=== PATIENT | male | born 1985 | race Caucasian/White ===

== ENCOUNTER 2020-11-29 19:19 | Emergency (ER) | payer BC, SELFPAY | END 2020-11-29 19:25 | disposition left against medical advice (07) | PROVIDERS: Emergency Provider Nurse Practitioner Family; PCP Hospitalist | DX: Z53.21 Procedure and treatment not carried out due to patient leaving prior to being seen by health care provider (principal) | CPT/HCPCS: 99199 ==

== ENCOUNTER 2025-03-16 10:04 | Emergency (ER) | payer BC, SELFPAY ==
[2025-03-16 10:15] VITALS: BP 122/95; PULSE 102; RESP 20; TEMP 36.7; O2SAT 97
--- OUTSIDE RECORDS SUMMARY | 2025-03-16 10:54 | XMS_ITS | Clinical Summary ---
Author Organization [facility] Address [address], [facility] [address] [place] [address] Phone Care Team Providers Care Nursery Attendant Name Role Phone Cole Robles MD Unavailable [phone] Moiz Galicia MD Primary Care Provider [phone] Allergies Active Allergy Reactions Criticality Noted Date Comments Other Unknown Cats Medications citalopram (CELEXA) 20 MG Tablet Take 1 Tab by mouth daily. 90 Tab 04/16/2018 Active lisinopril (PRINIVIL, ZESTRIL) 10 MG TabletIndications :Essential hypertension Take 1 Tab by mouth daily. 90 Tab 3 11/19/2018 Active BuPROPion HCl (WELLBUTRIN PO) Take by mouth. Active ARIPiprazole (ABILIFY PO) Take by mouth. 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 Resolved Problems Problem Noted Date Diagnosed Date Resolved Date Paronychia, toe 12/03/2018 Overview (09/30/2015): Both borders R hallsimeon s/p I&D x 1 week healing Immunizations Immunization Administration Dates Next Due PUR Td W/ PRES AGE 7+ IM 11/21/2016 Pneumococcal Vaccine Adult - 23 Valent 9 Family History Medical History Relation Name Comments No Known Problems Brother Hypertension Father Cancer Maternal Grandfather Lung Hypertension Mother Relation Name Status Comments Brother Alive Father Alive Maternal Grandfather Mother Alive Social History Tobacco Use Types Packs/Day Years Used Date Smoking Tobacco: Every Day Cigarettes 0.2 22.3 Started: 11/21/2002 Smokeless Tobacco: Current Tobacco Cessation:Ready to Q uit: No; Counseling Given: Yes Comments:e cig Alcohol Use Standard Drinks/Week Comments Yes 0 (1 standard drink = 0.6 oz pur e alcohol) PHQ-2 Answer Date Recorded PHQ-2 Score 1 2019 Sex and Gender Information Value Date Recorded Sex Assigned at Not on file Legal Sex Male 12:01 AM CDT Gender Identity Not on file Sexual Orientation Not on file Last Filed Vital Signs Vital Sign Reading Time Taken Comments Blood Pressure 142/74 12/03/2018 3:58 PM [employer] Pulse 82 12/03/2018 3:58 PM [employer] Temperature 37 C (98.6 F) 12/03/2018 3:58 PM [employer] Respiratory Rate 18 07/29/2017 3:40 PM CDT Oxygen Saturation 95% 12/03/2018 3:58 PM [employer] Inhaled Oxygen Concentration - - Weight 111.9 kg (246 lb 12.8 oz) 12/03/2018 3:58 PM [employer] Height 184.2 cm (6' 0.5 ) 12/03/2018 3:58 PM [employer] Body Mass Index 33.01 12/03/2018 3:58 PM [employer] Plan of Treatment Health Maintenance Due Date Last Done Comments Hepatitis C Virus (HCV) Screening 1985 TdaP Immunization 1985 Hepatitis B Immunization (1 of 3 - 19+ 3-dose series) 2004 Influenza Immunization (#1) 2024 SARS-COV-2 Immunization (2023- season) 2024 01/29/2021, 01/07/2021 Respiratory Syncytial Virus (RSV) Immunization (Adult) (1 - 1-dose 75+ series) 2060 Pneumococcal Immunization Combined Aged Out 12/03/2018 No longer eligible b ased on patient's age to complete this topic Meningococcal Immunization (ACWY) Aged Out No longer eligible b ased on patient's age to complete this topic Rotavirus Immunization Aged Out No lo nger eligible based on patient's age to complete this topic Insurance [facility] Care Teams Nursery Attendant Relationship Specialty Start Date End Date Moiz Galicia MD [address] [place] [address] PCP - General Family Medicine 04/28/21 Cole Robles MD [address] [place] [address] Consulting Physician Psychiatry 12/03/18
--- OUTSIDE RECORDS SUMMARY | 2025-03-16 10:54 | XMS_ITS | Encounter Summary ---
Author Organization [facility] Healthcare Address [address] [place] [address] Care Team Providers Care Cracking Machine Operator Name Role Phone Moiz Galicia MD Primary Care Provider [phone] Reason for Visit * Reason Onset Date Comments Medical Question/Miscellaneous 05/01/2024 Encounter Details Date Type Department Care Team (Late st Contact Info) Description 05/01/2024 Telephone [facility] [address] [address] Moiz Galicia MD [address] [place] [id number] Medical Question/Miscellaneous Social History Tobacco Use Types Packs/Day Years Used Date Smoking Tobacco: Every Day Vaping Smokeless Tobacco: Never Alcohol Use Standard Drinks/Week Comments Not Currently 0 (1 standard drink = 0.6 oz pur e alcohol) AUDIT-C Answer Date Recorded Q1: How often do you have a drink containing alc ohol? 2-4 times a month 12/07/2022 Average Number of Drinks Not on file 023 Frequency of Binge Drinking Not on file 11/12 PHQ-2 Answer Date Recorded PHQ-2 Total Score (If total score is 3 or more points, staff should administer the PHQ-9) 0 08/09/2023 Personal Safety Answer Date Recorded Have you ever been in or are you currently in a harmful physical or emotional relationship or is someone making you feel afraid or unsafe? Denies 09/09/2023 Sex and Gender Information Value Date Recorded Sex Assigned at Not on file Legal Sex Male 6:50 PM RN [employer] Gender Identity Not on file Sexual Orientation Not on file documented as of this encounter Plan of Treatment Not on file documented as of this encounter Visit Diagnoses Not on filedocumented in this encounter Care Teams Cracking Machine Operator Relationship Specialty Start Date End [place] [address] PCP - General Family Medicine 08/12/20 documented as of this encounter
--- OUTSIDE RECORDS SUMMARY | 2025-03-16 10:54 | XMS_ITS | Clinical Summary ---
Author Organization [facility] [address] Address [address] [place] [id number] Care Team Providers Care Education Rep Name Role Phone Moiz Galicia MD Primary Care Provider [phone] Allergies Active Allergy Reactions Criticality Noted Date Comments Cat Lg Unknown 02/15/2021 Medications ALPRAZolam (XANAX) 1 mg tabletIndicatio ns:Generalized Anxiety Disorder,Panic Disorder Take 1 tablet (1 mg total) by mouth 4 (four) times a day 120 tablet 5 03/28/20 25 Active ARIPiprazole (ABILIFY) 5 mg tabletIndicatio ns:Bipolar affective disorder, currently depressed, moderate (HCC) Take 1 tablet (5 mg total) by mouth daily 30 tablet 5 03/28/[address] (CYMBALTA) 30 mg capsuleIndicati ons:Anxiety with Depression Take 1 capsule (30 mg total) by mouth daily 30 capsule 5 03/28/20 25 Active lisinopriL (PRINIVIL,ZESTR IL) 10 mg tabletIndicatio ns:Hypertension , essential Take 1 tablet (10 mg total) by mouth daily 30 tablet 5 03/28/20 25 Active carvediloL (COREG) 12.5 mg tablet Take 1 tablet (12.5 mg total) by mouth 2 (two) times a day with meals 60 tablet 5 03/28/20 25 Active FLUoxetine (PROzac) 10 mg tablet/capsuleI ndications:Bipo lar affective disorder, currently depressed, moderate (HCC) Take 1 tablet/capsu le (10 mg total) by mouth daily 30 tablet/capsul e 5 03/28/20 25 Active FLUoxetine (PROzac) 10 mg tablet/capsuleI ndications:Bipo lar affective disorder, currently depressed, moderate (HCC) Take 1 tablet/capsu le (10 mg total) by mouth daily 90 capsule 4 5 02/27/20 25 Discontinu ed(Reorder ) carvediloL (COREG) 12.5 mg tablet Take 1 tablet (12.5 mg total) by mouth 2 (two) times a day with meals 180 tablet 3 5 02/27/20 25 Discontinu ed(Reorder ) ARIPiprazole (ABILIFY) 5 mg tabletIndicatio ns:Bipolar affective disorder, currently depressed, moderate (HCC) Take 1 tablet (5 mg total) by mouth daily 90 tablet 5 02/27/20 25 Discontinu ed(Reorder ) lisinopriL (PRINIVIL,ZESTR IL) 10 mg tabletIndicatio ns:Hypertension , essential Take 1 tablet (10 mg total) by mouth daily 90 tablet 1 5 02/27/20 25 Discontinu ed(Reorder ) DULoxetine DR (CYMBALTA) 30 mg capsuleIndicati ons:Anxiety with Depression Take 1 capsule (30 mg total) by mouth daily 90 capsule 1 5 02/27/20 25 Discontinu ed(Reorder ) ALPRAZolam (XANAX) 1 mg tabletIndicatio ns:Generalized Anxiety Disorder,Panic Disorder Take 1 tablet (1 mg total) by mouth 4 (four) times a day 120 tablet 5 02/27/20 25 Discontinu ed(Reorder ) Active Problems Problem Noted Date Diagnosed Date COVID-19 08/15/2021 Bowel obstruction 03/20/2021 Assessment & Plan (04/07/2021 10:37 AM CDT): No further episodes of bowel obstruction could patient washing weight eats Patient continue to monitor abdominal pain, will likely need colonoscopy if repeat bowel obstruction or her Herniated intervertebral disc of lumbar spine Assessment & Plan (01/11/2022 11:41 AM BUSINESS DEVELOPMENT INTERN): Patient reports continued back pain; worse at night Pain is nonradiating Has completed 8 weeks of physical therapy Will evaluate for future evaluations, MRI verses evaluation by surgery for cause of chronic back pain Assessment & Plan (04/07/2021 10:38 AM CDT): Improving, patient recently had spinal injections which was removed pain, patient no longer is needs [place] for pain management Will continue to monitor for relief from treatments Assessment & Plan (03/10/2021 12:56 PM CDT): Not well controlled, contiues to have low back pain, worse with walking and standing from sitting; unable to go to PT due to acute recovery from hernia repair surgery -continue [place]-10 BID, will increase gabapentin to 300 mg up to TID -patient to start up PT as soon as cleared by general surgery Bilateral inguinal hernia without obstruction or gangrene 02/07/2021 Overview (02/07/2021): Added automatically from request for surgery [id number] Assessment & Plan (04/07/2021 10:38 AM CDT): Abdominal pain is improving, patient is recovering well from surgery Assessment & Plan (03/30/2021 10:07 AM CDT): Diet as tolerated. Okay to return to work with light duty. No heavy lifting greater than 20 lb for 4 weeks. No submerging incisions for 4 weeks. Please call for any further questions or concerns. Assessment & Plan (02/28/2021 10:00 AM CDT): No heavy lifting for a further 4 weeks. If patient has light duty can return to work without lifting greater than 20 lb. If not patient should take the remaining 4 weeks off. Continue bowel regimen to avoid straining. Patient will call back sooner with any questions or concerns. Assessment & Plan (02/24/2021 2:06 PM CDT): Stable, patient had surgical repair in January, has improving pain and abdomen Patient remains in at home as he is unable to return to work due to lifting restrictions Patient is no longer using [place] for pain management Assessment & Plan (02/13/2021 1:15 PM CDT): The procedure of tep bilateral hernia repair with mesh was explained to the patient along with the risks, benefits, and post oerpateive period, to which he agrees. Will plan for tep bilateral with . Overweight (BMI 25.0-29.9) 10/05/2020 Assessment & Plan (05/22/2022 3:32 PM CDT): Stable, improving; patient reports 30-40 lb weight loss since quit drinking alcohol Will continue to monitor encourage regular weight loss Assessment & Plan (11/14/2021 3:06 PM BUSINESS DEVELOPMENT INTERN): Improving, patient has been working on weight loss; stop alcohol 1 year ago, has been using about 30 lb since 1 year ago Assessment & Plan (10/05/2020 9:25 AM BUSINESS DEVELOPMENT INTERN): Encouraged diet and exercise to help with weight loss as well as lifestyle treatment for anxiety and depression IBS (irritable bowel syndrome) 08/12/2020 Overview (08/12/2020): Diarrhea predominant Assessment & Plan (06/16/2021 11:22 AM CDT): Increase dietary fiber and return prn Bipolar affective disorder, currently depressed, moderate 08/12/2020 Overview (08/12/2020): Reports episodes of ti in the past Assessment & Plan (06/02/2024 4:02 PM CDT): Not well controlled; patient has been having multiple stressors, including going through divorce; lost work Brother is also recently lost job Patient is now caring for self parents can dog Continue Abilify 5 mg daily, fluoxetine 10 mg daily, start carvedilol 12.5 mg b.i.d. Assessment & Plan (01/23/2024 1:09 PM CDT): Stable, well controlled; patient reports he has in a better place; decreased depression, no episodes of ti Discontinue Abilify, bupropion and duloxetine (patient has stopped taking them); will continue to monitor for any recurrence of symptoms Patient currently taking Xanax 1 mg b.i.d. for anxiety and continues to work to wean off medication Assessment & Plan (08/09/2023 12:42 PM CDT): Stable, well controlled; has some depression anxiety related to recent divorce; triggered; no episodes of ti Continue Abilify 20 mg daily, bupropion 300 mg daily Assessment & Plan (07/09/2023 12:54 PM CDT): Stable, well controlled; no recent episodes of depression or ti Continue Abilify 20 mg daily, bupropion 300 mg daily Assessment & Plan (05/22/2022 3:32 PM CDT): not well controlled, patient currently not following Psychiatry due to gap in insurance has been having depression at this time Continue Abilify 20 mg daily, bupropion 150 mg daily referra Assessment & Plan (01/11/2022 11:40 AM BUSINESS DEVELOPMENT INTERN): Was been doing well, continues to take Abilify and clonazepam; had to discontinue bupropion and Celexa due to loss of insurance Patient reports no significant changes in mood with medication changes Today continue Abilify 20 mg daily, clonazepam 1 mg b.i.d. Assessment & Plan (11/14/2021 3:05 PM BUSINESS DEVELOPMENT INTERN): Stable, well controlled; no recent episodes of depression or ti Continue bupropion 3 mg daily, Abilify 20 mg daily Assessment & Plan (09/09/2020 4:07 PM CDT): Stable, improving, plan as above Assessment & Plan (08/12/2020 2:51 PM CDT): New diagnosis, poorly controlled Medication plan as above anxiety depression Patient has passive suicidal ideations, but no active thoughts and has protective aspects of marriage and children Patient has no history of suicide attempts in the past and no past hospitalizations for psychiatric disorders Patient given information regarding free suicide help line which patient is familiar with Anxiety and depression 11/21/2016 Assessment & Plan (06/02/2024 4:03 PM CDT): Patient continues to have elevated anxiety, multiple stressors and responsibilities Continue Xanax 1 mg q.i.d. Assessment & Plan (08/09/2023 12:42 PM CDT): Not well controlled; continues to have symptoms; especially anxiety; limited relief with bupropion and Abilify Continue Xanax 1 mg q.i.d.; encouraged patient to use life box Continue Abilify 20 mg daily, bupropion 300 mg daily, start Cymbalta 30 mg daily Assessment & Plan (07/09/2023 12:55 PM CDT): Not well controlled; patient has good relief with current medications; but has multiple stressors including irregular job hours; working part-time jobs, from spouse and worse process, as well as from children Will continue Xanax 1 mg q.i.d.; encouraged patient to engage with individual counseling Assessment & Plan (12/11/2022 2:45 PM BUSINESS DEVELOPMENT INTERN): Not well controlled, patient reports significant anxiety; multiple stressors; current separation with with concerns for divorce; dog recently , patient no living with parents Patient reports some benefits, working full-time with possible raise Patient is engage with individual counseling with [facility] Continue Abilify 20 mg daily, bupropion 150 mg daily Increase alprazolam to 1 mg q.i.d. to help manage anxiety Assessment & Plan (05/22/2022 3:33 PM CDT): Limited relief with clonazepam for anxiety Will start Valium 10 mg b.i.d. Assessment & Plan (11/14/2021 3:05 PM BUSINESS DEVELOPMENT INTERN): Stable, reports he has multiple changes including work changes Continue Klonopin 1 mg b.i.d. Continue bupropion 300 mg daily and Abilify 20 mg daily Assessment & Plan (04/07/2021 10:39 AM CDT): Not well controlled, patient has multiple stressors at home, currently well managed on clonazepam 1 mg b.i.d., discussed with patient importance of counseling in order to try to reduce dose Patient to follow up with Psychiatry to determine if he needs any adjustments in his medications Assessment & Plan (03/10/2021 12:54 PM CDT): Not well controlled; continues to have worsening depression, especially related to injury, decreased ability to be active and work; increased stress at home -will increase Bupropion to 450 mg daily to help with energy and acitivity -continue with Abilify -continue with Celexa 40 mg -Clonazepam 1 mg BID Assessment & Plan (02/24/2021 2:07 PM CDT): Anxiety has been worsening for patient, most recently since he is staying at home from working now has more responsibilities at home Patient reports he has been using Klonopin 2 mg daily due to increased anxiety and stress At this time will increase Klonopin to 2 mg daily, encouraged patient to work on coping mechanisms and management of stress as well as improved management of home short so he does not feel as stressed from family Assessment & Plan (10/05/2020 9:25 AM BUSINESS DEVELOPMENT INTERN): Stable, well controlled Patient has increased dose of clonazepam mildly for p.r.n. anxiety attacks Will increase to 40 tablets per month to provide therapy for acute exacerbations Encouraged patient to continue to seek for counseling Assessment & Plan (09/09/2020 4:07 PM CDT): Depression is improving patient reports better mood, but still continues to endorse some passive suicidal thoughts Encouraged continue use of medications and seeking counseling to help discussed multiple moral injuries in past Will continue current medications, Klonopin prescribed for nightly use Assessment & Plan (08/12/2020 2:57 PM CDT): Patient has general anxiety disorder with panic attacks Has been using nonprescription Xanax to help with daily panic attacks Given worsening symptoms will increase Abilify to 30 mg daily and increase Celexa to 40 mg daily Will give trial of low-dose Klonopin daily to help with anxiety while patient adjust to higher dose of antidepressant and antipsychotics Testing for urine toxicology next visit Patient encouraged to return to counseling to continue to work with depression, anxiety and discuss past traumas which may worsen current mental health crisis Hyperlipidemia 11/21/2016 Assessment & Plan (08/12/2020 2:50 PM CDT): Most recent lipid panel from 1 year ago demonstrated low HDL Given use of antipsychotic will recheck lipid panel to evaluate for metabolic syndrome Hypertension, essential 11/21/2016 Assessment & Plan (06/02/2024 4:02 PM CDT): Not well controlled, blood pressure has been elevated; patient not currently taking medication Refill medication for lisinopril 10 mg daily, carvedilol 12.5 mg b.i.d. Assessment & Plan (01/23/2024 1:09 PM CDT): No chest pain or pressure; elevated blood pressure initially; improved after sitting Would recommend patient continue with antihypertensives given initially high measurement Continue lisinopril 10 mg daily Assessment & Plan (08/09/2023 12:42 PM CDT): Well controlled, blood pressure at target; no chest pain or headaches Continue lisinopril 10 mg daily Assessment & Plan (07/09/2023 12:54 PM CDT): Stable, well controlled; blood pressure at goal; well controlled with current medication Continue lisinopril 10 mg daily Assessment & Plan (12/11/2022 2:45 PM BUSINESS DEVELOPMENT INTERN): Stable, well controlled; blood pressure at target today Continue lisinopril 10 mg daily Assessment & Plan (05/22/2022 3:31 PM CDT): Stable, well controlled; blood pressure at target today Continue lisinopril 10 mg daily Assessment & Plan (01/11/2022 11:41 AM BUSINESS DEVELOPMENT INTERN): Blood pressure well controlled; at target today, patient reports some episodes of dizziness but no headaches or chest pain Continue lisinopril 10 mg Assessment & Plan (11/14/2021 3:05 PM BUSINESS DEVELOPMENT INTERN): Stable, not well controlled; high normal today No hypertension with medications, no episodes of chest pain or headaches Continue lisinopril 10 mg daily Assessment & Plan (04/07/2021 10:38 AM CDT): Stable, well controlled Will continue lisinopril 10 mg Assessment & Plan (03/10/2021 12:56 PM CDT): Stable, well controlled; continue with current medications Assessment & Plan (10/05/2020 9:24 AM BUSINESS DEVELOPMENT INTERN): Stable, well controlled Blood pressures have been normal in office, however patient reports elevated blood pressures at home Discussed with patient importance of taking proper blood pressures at home recording time of blood pressure measurement if needed patient can bring in blood pressure machine to clinic to check verses our machine Continue to encourage exercise and healthy diet Assessment & Plan (08/12/2020 2:50 PM CDT): Blood pressure today at target, patient not taking any blood pressure medication Encounters Date Type Department Care Team Description 03/10/2025 Telephone [facility] [address] [id number] Moiz Galicia MD Labwork 01/07/2025 Telephone [facility] [address] [address] Moiz Galicia MD Medication Request; Call Back from Last 3 Months Immunizations Immunization Administration Dates Next Due Influenza, Unspecified 08/09/2023(Deferr ed: Patient Refused),07/09/2023(Deferred: Patient Refused),07/09/2023(Deferred: Patient Refused),07/12/2022(Deferred: Patient Refused),07/12/2022(Deferred: Patient Refused),12/21/2021(Deferred: Patient Refused),08/03/2021(Deferred: Patient Refused),11/11/2020(Deferred: Patient Refused),10/05/2020(Deferred: Patient Refused),09/09/2020(Deferred: Patient Refused),08/12/2020(Deferred: Patient Refused),08/11/2020(Deferred: Patient Refused),11/11/2019(Deferred: Patient Refused),11/11/2019(Deferred: Patient Refused) Pfizer SARS-CoV-2 Monovalent Vaccination (12+ Yrs) PURPLE 01/29/2021,01/07/2021 Pneumococcal Polysaccharide PPV23 12/03/2018 Td, Unspecified 11/21/2016 Surgical History Surgery Date Site/Laterality Comments VASECTOMY HERNIA REPAIR 02/15/2021 double inguinal hernia repair Medical History Medical History Date Comments Anxiety Depression Sleep apnea Hypertension Family History Medical History Relation Name Comments Hypertension Mother Relation Name Status Comments Father Alive Mother Alive Social History Tobacco Use Types Packs/Day Years Used Date Smoking Tobacco: Every Day Vaping Smokeless Tobacco: Never Tobacco Cessation:Ready to Q uit: Not Asked; Counseling Given: Not Answered Alcohol Use Standard Drinks/Week Comments Not Currently [...] making you feel afraid or unsafe? Denies 09/14/2024 Sex and Gender Information Value Date Recorded Sex Assigned at Not on file Legal Sex Male 6:50 PM BUSINESS DEVELOPMENT INTERN Gender Identity Not on file Sexual Orientation Not on file Obstetrics History Last Filed Vital Signs Vital Sign Reading Time Taken Comments Blood Pressure 143/100 09/14/2024 11:35 PM BUSINESS DEVELOPMENT INTERN Pulse 105 09/14/2024 11:35 PM BUSINESS DEVELOPMENT INTERN Temperature 36.6 C (97.8 F) 09/14/2024 11:35 PM BUSINESS DEVELOPMENT INTERN Respiratory Rate 20 09/14/2024 11:35 PM BUSINESS DEVELOPMENT INTERN Oxygen Saturation 93% 09/14/2024 11:35 PM BUSINESS DEVELOPMENT INTERN Inhaled Oxygen Concentration - - Weight 86.2 kg (190 lb) 05/19/2024 8:49 AM CDT Height 182.9 cm (6') 05/19/2024 8:49 AM CDT pt s tated Body Mass Index 25.77 05/19/2024 8:49 AM CDT Plan of Treatment Health Maintenance Due Date Last Done Comments Hepatitis C Screening 1985 Varicella Vaccines (1 of 2 - 13+ 2-dose series) 1998 Hepatitis B Screening 2003 Regular Well Visit/Exam 18-64 2003 DTaP/Tdap/Td Vaccine (1 - Tdap) 11/22/2016 11/21/2016 Pneumococcal vaccine <65 (2 of 2 - PCV) 12/03/2019 12/03/2018 Covid-19 Vaccine (3 - season) 2024 01/29/2021, 01/07/2021 Depression Screening 08/09/2024 08/09/2023, 07/09/2023, 12/07/2022, Additional history exists HPV Vaccines Aged Out No longer eligi ble based on patient's age to complete this topic Influenza Vaccine Discontinued Medical Devices Implanted Type Area Securities Attorney Device Identifier Shelf Expiration Date Model / Serial / Lot [employer]/C R Bard [id number] Bard 3dmax 6x4in Seal Edge Groin Left Large 3d Curve Contour Mesh - [id number] Implanted:Qty: 1 on 02/15/2021 by Rito Valero MD at [facility] Left: Abdomen [employer]/C R Bard 09/07/2025 [id number] / / [id number] [employer]/C R Bard [id number] Bard 3dmax 6x4in Seal Edge Groin Right Large 3d Curve Contour - [id number] Implanted:Qty: 1 on 02/15/2021 by Rito Valero MD at [facility] Right: Abdomen [employer]/C R Bard 09/07/2025 [id number] / / [id number] Insurance [facility] [place] [address] Advance Directives For more information, please contact: [phone] * Full Code (Latest Code Status on File) Date Activated Date Inactivated Comments 03/20/2021 5:33 AM 03/20/2021 10:05 PM Care Teams Education Rep Relationship Specialty Start Date End Date [place] [address] PCP - General Family Medicine 08/12/20
--- OUTSIDE RECORDS SUMMARY | 2025-03-16 10:54 | XMS_ITS | Encounter Summary ---
Author Organization [facility] Healthcare Address [address] [place] [address] Care Team Providers Care Content Curator Name Role Phone Moiz Galicia MD Primary Care Provider [phone] Encounter Details Date Type Department Care Team (Late st Contact Info) Description 01/11/2021 Telephone [facility] [address] [place] [id number] Hilaria Espinosa, RT Social History Tobacco Use Types Packs/Day Years Used Date Smoking Tobacco: Every Day E-cigarettes Smokeless Tobacco: Never Comments:3 cigs daily Alcohol Use Standard Drinks/Week Comments Not Currently 0 (1 standard drink = 0.6 oz pur e alcohol) PHQ-2 Answer Date Recorded PHQ-2 Total Score (If total score is 3 or more points, staff should administer the PHQ-9) 4 01/06/2021 Sex and Gender Information Value Date Recorded Sex Assigned at Not on file Legal Sex Male 6:50 PM ENROLLMENT REPRESENTATIVE Gender Identity Not on file Sexual Orientation Not on file documented as of this encounter Plan of Treatment Not on file documented as of this encounter Visit Diagnoses Not on filedocumented in this encounter Additional Health Concerns Infection Onset Date Last Indicated Resolved Time COVID: Suspected 08/10/2021 08/10/2021 08/10/2021 10:11 AM CDT COVID19 08/10/2021 08/10/2021 08/24/2021 3:05 AM CDT COVID: Suspected 12/11/2021 12/11/2021 12/11/2021 10:58 AM ENROLLMENT REPRESENTATIVE COVID: Suspected 02/13/2022 02/13/2022 02/13/2022 2:51 PM CDT documented as of this encounter Care Teams Content Curator Relationship Specialty Start Date End [place] [id number] PCP - General Family Medicine 08/12/20 documented as of this encounter
--- OUTSIDE RECORDS SUMMARY | 2025-03-16 10:54 | XMS_ITS | Referral Summary ---
Author Organization [facility] [place] [address] Address [address] [place] [address] Care Team Providers Care Firer Electric Locomotive Name Role Phone Moiz Galicia MD Primary Care Provider [phone] [phone] Encounters Date Type Department Care Team Description 03/10/2025 Telephone [facility] [address] [address] Moiz Galicia MD Labwork 01/07/2025 Telephone [facility] [address] [address] Moiz Galicia MD Medication Request; Call Back from Last 3 Months Allergies Active Allergy Reactions Criticality Noted Date [...] spine Assessment & Plan (01/11/2022 11:41 AM PETROLEUM PRODUCTION ENGINEER): Patient reports continued back pain; worse at night Pain is nonradiating Has completed 8 weeks of physical therapy Will evaluate for future evaluations, MRI verses evaluation by surgery for cause of chronic back pain Assessment & Plan (04/07/2021 10:38 AM CDT): Improving, patient recently had spinal injections which was removed pain, patient no longer is needs [place] for pain management Will continue to monitor for relief from treatments Assessment & Plan (03/10/2021 12:56 PM CDT): Not well controlled, contiues to have low back pain, worse with walking and standing from sitting; unable to go to PT due to acute recovery from hernia repair surgery -continue [place]-10 BID, will increase gabapentin to 300 mg up to TID -patient to start up PT as soon as cleared by general surgery Bilateral inguinal hernia without obstruction or gangrene 02/07/2021 Overview (02/07/2021): Added automatically from request for surgery [id number] Assessment & Plan (04/07/2021 10:38 AM CDT): [...] lifting restrictions Patient is no longer using Forseva for pain management Assessment & Plan (02/13/2021 [...] loss Assessment & Plan (11/14/2021 3:06 PM PETROLEUM PRODUCTION ENGINEER): Improving, patient has been working on weight loss; stop alcohol 1 year ago, has been using about 30 lb since 1 year ago Assessment & Plan (10/05/2020 9:25 AM PETROLEUM PRODUCTION ENGINEER): Encouraged diet and exercise to help with [...] referra Assessment & Plan (01/11/2022 11:40 AM PETROLEUM PRODUCTION ENGINEER): Was been doing well, continues to take Abilify and clonazepam; had to discontinue bupropion and Celexa due to loss of insurance Patient reports no significant changes in mood with medication changes Today continue Abilify 20 mg daily, clonazepam 1 mg b.i.d. Assessment & Plan (11/14/2021 3:05 PM PETROLEUM PRODUCTION ENGINEER): Stable, well controlled; no recent episodes of [...] counseling Assessment & Plan (12/11/2022 2:45 PM PETROLEUM PRODUCTION ENGINEER): Not well controlled, patient reports significant anxiety; multiple stressors; current separation with with concerns for divorce; dog recently , patient no living with parents Patient reports some benefits, working full-time with possible raise Patient is engage with individual counseling with [facility] Continue Abilify 20 mg daily, bupropion 150 mg daily Increase alprazolam to 1 mg q.i.d. to help manage anxiety Assessment & Plan (05/22/2022 3:33 PM CDT): Limited relief with clonazepam for anxiety Will start Valium 10 mg b.i.d. Assessment & Plan (11/14/2021 3:05 PM PETROLEUM PRODUCTION ENGINEER): Stable, reports he has multiple changes including [...] family Assessment & Plan (10/05/2020 9:25 AM PETROLEUM PRODUCTION ENGINEER): Stable, well controlled Patient has increased dose [...] daily Assessment & Plan (12/11/2022 2:45 PM PETROLEUM PRODUCTION ENGINEER): Stable, well controlled; blood pressure at target today Continue lisinopril 10 mg daily Assessment & Plan (05/22/2022 3:31 PM CDT): Stable, well controlled; blood pressure at target today Continue lisinopril 10 mg daily Assessment & Plan (01/11/2022 11:41 AM PETROLEUM PRODUCTION ENGINEER): Blood pressure well controlled; at target today, patient reports some episodes of dizziness but no headaches or chest pain Continue lisinopril 10 mg Assessment & Plan (11/14/2021 3:05 PM PETROLEUM PRODUCTION ENGINEER): Stable, not well controlled; high normal today No hypertension with medications, no episodes of chest pain or headaches Continue lisinopril 10 mg daily Assessment & Plan (04/07/2021 10:38 AM CDT): Stable, well controlled Will continue lisinopril 10 mg Assessment & Plan (03/10/2021 12:56 PM CDT): Stable, well controlled; continue with current medications Assessment & Plan (10/05/2020 9:24 AM PETROLEUM PRODUCTION ENGINEER): Stable, well controlled Blood pressures have been [...] patient not taking any blood pressure medication Immunizations Immunization Administration Dates Next Due Influenza, Unspecified 08/09/2023(Deferr ed: Patient Refused),07/09/2023(Deferred: Patient Refused),07/09/2023(Deferred: Patient Refused),07/12/2022(Deferred: Patient Refused),07/12/2022(Deferred: Patient Refused),12/21/2021(Deferred: Patient Refused),08/03/2021(Deferred: Patient Refused),11/11/2020(Deferred: Patient Refused),10/05/2020(Deferred: Patient Refused),09/09/2020(Deferred: Patient Refused),08/12/2020(Deferred: Patient Refused),08/11/2020(Deferred: Patient Refused),11/11/2019(Deferred: Patient Refused),11/11/2019(Deferred: Patient Refused) Pfizer SARS-CoV-2 Monovalent Vaccination (12+ Yrs) PURPLE 01/29/2021,01/07/2021 Pneumococcal Polysaccharide PPV23 12/03/2018 Td, Unspecified 11/21/2016 Social History Tobacco Use Types Packs/Day Years [...] on file Legal Sex Male 6:50 PM PETROLEUM PRODUCTION ENGINEER Gender Identity Not on file Sexual Orientation Not on file Last Filed Vital Signs Vital Sign Reading Time Taken Comments Blood Pressure 143/100 09/14/2024 11:35 PM PETROLEUM PRODUCTION ENGINEER Pulse 105 09/14/2024 11:35 PM PETROLEUM PRODUCTION ENGINEER Temperature 36.6 C (97.8 F) 09/14/2024 11:35 PM PETROLEUM PRODUCTION ENGINEER Respiratory Rate 20 09/14/2024 11:35 PM PETROLEUM PRODUCTION ENGINEER Oxygen Saturation 93% 09/14/2024 11:35 PM PETROLEUM PRODUCTION ENGINEER Inhaled Oxygen Concentration - - Weight 86.2 kg (190 lb) 05/19/2024 8:49 AM CDT Height 182.9 cm (6') 05/19/2024 8:49 AM CDT pt s tated Body Mass Index 25.77 05/19/2024 8:49 AM CDT Plan of Treatment Not on file Medical Devices Implanted Type Area Hedis Nurse Device Identifier Shelf Expiration Date Model / Serial / Lot [employer]/C R Bard [id number] Bard 3dmax 6x4in Seal Edge Groin Left Large 3d Curve Contour Mesh - [id number] Implanted:Qty: 1 on 02/15/2021 by Rito Valero MD at [facility] Left: Abdomen [employer]/C R Bard 09/07/2025 [id number] / / [id number] [employer]/C R Bard [id number] Bard 3dmax 6x4in Seal Edge Groin Right Large 3d Curve Contour - [id number] Implanted:Qty: 1 on 02/15/2021 by Rito Valero MD at [facility] Right: Abdomen [employer]/C R Bard 09/07/2025 [id number] / / [id number] Insurance [facility] [place] [id number] Advance Directives For more information, please contact: [phone] * Full Code (Latest Code Status on File) Date Activated Date Inactivated Comments 03/20/2021 5:33 AM 03/20/2021 10:05 PM Care Teams Firer Electric Locomotive Relationship Specialty Start Date End Date Moiz Galicia MD [address] [place] [address] PCP - General Family Medicine 08/12/20
--- OUTSIDE RECORDS SUMMARY | 2025-03-16 10:54 | XMS_ITS | Encounter Summary ---
Author Organization [facility] Address [address] [place] [address] Care Team Providers Care Wire Transfer Clerk Name Role Phone Moiz Galicia MD Primary Care Provider [phone] [phone] Encounter Details Date Type Department Care Team (Late st Contact Info) Description 03/14/2021 Telephone [facility] Maurilio Pedro. [address] [place] [address] Dario Bond MD [address] [place] [address] [address] [place] [address] Social History Tobacco Use Types Packs/Day Years Used Date Smoking Tobacco: Every Day Cigarettes E-cigarettes Smokeless Tobacco: Never Comments:3 cigs daily Alcohol Use Standard Drinks/Week Comments Not Currently 0 (1 standard drink = 0.6 oz pur e alcohol) AUDIT-C Answer Date Recorded Q1: How often do you have a drink containing alc ohol? Never 02/15/2021 Average Number of Drinks Not on file 021 Q3: How often do you have si x or more drinks on one occasion? Never 02/15/2021 PHQ-2 Answer Date Recorded PHQ-2 Total Score (If total score is 3 or more points, staff should administer the PHQ-9) 4 03/10/2021 Sex and Gender Information Value Date Recorded Sex Assigned at Not on file Legal Sex Male 6:50 PM GOVERNMENT PROGRAM MANAGER Gender Identity Not on file Sexual Orientation [...] COVID: Suspected 12/11/2021 12/11/2021 12/11/2021 10:58 AM GOVERNMENT PROGRAM MANAGER COVID: Suspected 02/13/2022 02/13/2022 02/13/2022 2:51 PM CDT documented as of this encounter Care Teams Wire Transfer Clerk Relationship Specialty Start Date End Date Moiz Galicia MD [address] [place] [address] PCP - General Family Medicine 08/12/20 documented as of this encounter
--- NOTE | 2025-03-16 11:13 | ED_ITS ---
HPI - General Adult General Chief complaint: Urogenital-Male Stated complaint: Possible STD Source: patient Mode of arrival: ambulatory Limitations: no limitations History of Present Illness HPI narrative: Patient presents to discuss a positive syphilis test. He indicates he donated plasma at the end of February. He received a letter in the mail approximately one week later advising that he had a positive syphilis test. He had never tested positive for syphilis in the past. He is unsure what his RPR titer was. He denies any recent genital sores, rash, urethral discharge, sore throat or other symptoms consistent with STI. He has had one new sex partner in the last year after going through a divorce. He states he engaged in insert of vaginal intercourse without a condom. He did not have any oral sex. He is wondering whether he can have additional testing today and is enquiring about treatment. Apparently he spoke with someone with the plasma center, [facility], just prior to the time of my exam we advised that he return therefore additional blood work related to his syphilis test. Related Data Home Medications ?Medication ?Instructions ?Recorded ?Confirmed ?Last Taken ?Type alprazolam 1 mg tablet mg 03/16/25 Unknown History aripiprazole 5 mg tablet mg 03/16/25 Unknown History carvedilol 12.5 mg tablet mg 03/16/25 Unknown History duloxetine 30 mg capsule,delayed mg PO 03/16/25 Unknown History release lisinopril 10 mg tablet mg 03/16/25 Unknown History Allergies Allergy/AdvReac Type Severity Reaction Status Date / Time No Known Allergies Allergy Verified 03/16/25 10:20 Review of Systems Review of Systems: CONSTITUTIONAL: Denies fever, chills, or sweats. EYES: Denies visual changes, redness, or discharge. ENT: Denies rhinorrhea, congestion, sore throat, or otalgia. CARDIOVASCULAR: Denies chest pain, palpitations, or edema. RESPIRATORY: Denies cough or dyspnea. GASTROINTESTINAL: Denies abdominal pain, nausea, vomiting, or diarrhea. GENITOURINARY: Denies dysuria or hematuria. SKIN: Denies rash or itching. MUSCULOSKELETAL: Denies back pain, joint pain, or myalgia. NEUROLOGIC: Denies headache, numbness, dizziness, or weakness. PSYCHIATRIC: Denies anxiety or depression. [facility] Past Medical History Medical History Hypertension Depression Anxiety Surgical History Surgical History No pertinent past surgical history Family History Family History Mother Family history non-contributory Social History Social History Substance use: never Gender identity (if verbalized by the patient): Male Spiritual care concerns: No Exam Narrative: GENERAL: Well-appearing, well-nourished, and in no acute distress. HEAD: Normocephalic, atraumatic. EYES: PERRLA and EOMI. ENT: Nares clear, no rhinorrhea or epistaxis. Mucous membranes moist. Oropharynx without tonsillar hypertrophy exudate or other lesions. Bilateral TMs pearly raman nonbulging NECK: Supple. No adenopathy or masses. No carotid bruits or JVD CHEST: Clear to auscultation. No respiratory distress. No wheezes rales or rhonchi HEART: Regular rate and rhythm. No murmur heard. Normal peripheral pulses. ABDOMEN: Soft, nontender, nondistended, normal active bowel sounds. GENITAL: No external genital lesions. No inguinal lymphadenopathy. No scrotal swelling. No urethral discharge. EXTREMITIES: Normal range of motion. No edema. SKIN: Warm, dry, no rash. NEURO: No focal deficits. Alert and oriented x3. PSYCH: Normal mood and affect. Course Course Emergency Course: This is a 39-year-old male who presented to discuss a positive syphilis test. I contacted the [facility] Department and spoke with nurse, Adelaida. She has set patient call her directly for further testing and treatment. Provided him with her phone number . We did do urine testing for gonorrhea, chlamydia, Trichomonas. We also did oropharyngeal gonorrhea and chlamydia testing. He was not treated empirically for G/C or trich today. He was advised to remain sexually abstinent. He was encouraged to have comprehensive STI testing today. He should go to the emergency department for worsening symptoms. Patient in agreement with plan of care. Level of Care: Express Care Visit Vital Signs Vital signs: Vital Signs Temperature 36.7 C 03/16/25 10:15 Pulse Rate 102 H 03/16/25 10:15 Respiratory Rate 03/16/25 10:15 Blood Pressure 122/95 H 03/16/25 10:15 Pulse Oximetry 97 03/16/25 10:15 Oxygen Delivery Room Air 03/16/25 10:15 Temperature 36.7 C 03/16/25 10:15 Pulse Rate 102 H 03/16/25 10:15 Respiratory Rate 20 03/16/25 10:15 Blood Pressure 122/95 H 03/16/25 10:15 Pulse Oximetry 97 03/16/25 10:15 Oxygen Delivery Room Air 03/16/25 10:15 Medical Decision Making Vital Signs Vital Signs: Vital Signs Temperature 36.7 C 03/16/25 10:15 Pulse Rate 102 H 03/16/25 10:15 Respiratory Rate 03/16/25 10:15 Blood Pressure 122/95 H 03/16/25 10:15 Pulse Oximetry 97 03/16/25 10:15 Oxygen Delivery Room Air 03/16/25 10:15 Temperature 36.7 C 03/16/25 10:15 Pulse Rate 102 H 03/16/25 10:15 Respiratory Rate 03/16/25 10:15 Blood Pressure 122/95 H 03/16/25 10:15 Pulse Oximetry 97 03/16/25 10:15 Oxygen Delivery Room Air 03/16/25 10:15 Discharge Plan Discharge Clinical Impression: Exposure to syphilis Patient Disposition: Home Condition: Stable Instructions: Antibiotic Form, Safe Sex Practices (ED) Additional Instructions: PLEASE RETURN TO [facility] FOR SYPHILIS TEST. THEY CAN DIRECT YOU WHERE TO GO FOR TREATMENT PLEASE ABSTAIN FROM SEX WE ENCOURAGE YOU TO HAVE COMPREHENSIVE STI TESTING PERFORMED PLEASE CALL [facility] TODAY. ASK FOR ADELAIDA Patient Language: Cymro Prescriptions: No Action carvedilol 12.5 mg tablet alprazolam 1 mg tablet lisinopril 10 mg tablet aripiprazole 5 mg tablet duloxetine 30 mg capsule,delayed release(DR/EC) PO Follow-up/Referrals: Garyson,MD Moiz [Primary Care Provider] - Time of Disposition: 11:09
[2025-03-16 21:04] LABS: Trichomonas Vag PCR NOT DETECTED (NOT DETECTE)
[2025-03-16 21:06] LABS: Chlamydia trachomatis NOT DETECTED (NOT DETECTE); Neisseria gonorrhoeae PCR NOT DETECTED (NOT DETECTE)
[2025-03-16 21:26] LABS: Chlamydia trachomatis NOT DETECTED (NOT DETECTE); Neisseria gonorrhoeae PCR NOT DETECTED (NOT DETECTE)
== END 2025-03-16 11:14 | disposition home or self-care (01) ==
PROVIDERS: Emergency Provider Nurse Practitioner; PCP Hospitalist
DX: Z20.2 Contact with and (suspected) exposure to infections with a predominantly sexual mode of transmission (principal); I10 Essential (primary) hypertension
CPT/HCPCS: 87491; 87591; 87661; 99203; G0463